=== PATIENT | female | born 1935 | race Asian ===

== ENCOUNTER 2017-04-15 02:53 | Emergency (ER) | payer OTHER ==
[~2017-04-15] VITALS: Ht 152.4 cm; Wt 40.8 kg
[~2017-04-15 02:53] MED LIST: ALDACTONE25 MG ORAL; ALDACTONE50 MG ORAL; ASPIR 8181 MG ORAL; ATORVASTATIN CA20 MG ORAL; LEVOTHYROXINE50 MCG ORAL; LISINOPRIL10 MG ORAL; LISINOPRIL20 MG ORAL; SPIRONOLACTONE100 MG ORAL; SPIRONOLACTONE25 MG ORAL
[2017-04-15] MEDS ORDERED: Morphine Sulfate 2mg/ml Inj IVP ONE (03:30)
[2017-04-15 03:54] LABS: BASOPHILS % (AUTO) 1.4 % (0.0-2.0); EOSINOPHILS % (AUTO) 1.5 % (0.0-3.0); LYMPHOCYTES % (AUTO) 33.5 % (20.0-45.0); MEAN CORPUSCULAR HEMOGLOBIN 31.9 PG (27.0-31.0); MEAN CORPUSCULAR VOLUME 100 FL (80-99); MEAN PLATELET VOLUME 6.4 FL (6.5-10.1); MONOCYTES % (AUTO) 5.2 % (1.0-10.0); NEUTROPHILS % (AUTO) 58.3 % (45.0-75.0); PLATELET COUNT 203 K/UL (150-450); RED BLOOD COUNT 3.79 M/UL (4.20-5.40); RED CELL DISTRIBUTION WIDTH 11.7 % (11.6-14.8); WHITE BLOOD COUNT 7.2 K/UL (4.8-10.8)
[2017-04-15 04:08] LABS: TROPONIN I < 0.30 ng/mL (<=0.30)
[2017-04-15 04:11] VITALS: BP 153/71
[2017-04-15 04:11] LABS: ALANINE AMINOTRANSFERASE 22 U/L (3-33); ALBUMIN/GLOBULIN RATIO 1.4 (1.0-2.7); ANION GAP 9 (5-15); ASPARTATE AMINO TRANSFERASE 26 U/L (5-40); CALCIUM 9.5 mg/dL (8.6-10.2); CARBON DIOXIDE 30 mEQ/L (20-30); CHLORIDE 98 mEQ/L (98-107); CREATININE 0.9 mg/dL (0.5-0.9); HEMOLYSIS 5; SODIUM 137 mEQ/L (135-145); TOTAL PROTEIN 6.7 g/dL (6.6-8.7)
[2017-04-15 04:14] LABS: INR 0.9 (0.9-1.1); PROTHROMBIN TIME 9.3 SEC (9.30-11.50)
[2017-04-15] MEDS ORDERED: levETIRAcetam 1,000mg/NS100ml 100 ML IVPB ONE (04:15)
[2017-04-15 04:21] LABS: CKMB < 1.5 ng/mL (< 3.8)
--- NOTE | 2017-04-15 04:48 | Emergency Room Report ---
History of Present Illness General Chief Complaint: Headache Source: Patient, EMS Present Illness HPI 81-year-old female presents ED complaining of headache. Per EMS patient woke up with headache and called 911. Started approximately one hour ago sudden onset. 10 out of 10. Sharp. Nonradiating. Upon arrival patient is holding the right side of her head, has nausea and vomiting. Denies chest pain or shortness of breath. No other aggravating or relieving factors. Denies any other associated symptom Allergies: Coded Allergies: No Known Allergies (Verified , 01/22/13) Patient History Past Medical History: CVA/TIA Pertinent Family History: none Social History: Denies: alcohol use, drug use, smoking Last Menstrual Period: NONE Now: No Immunizations: UTD Reviewed Nursing Documentation: PMH: Agreed, PSxH: Agreed Nursing Documentation-PMH Hx Cardiac Problems: Yes Hx Hypertension: Yes - STROKE Hx Cancer: No Hx Gastrointestinal Problems: No Hx Neurological Problems: Yes Hx Dizziness: Yes Review of Systems All Other Systems: negative except mentioned in HPI Physical Exam Vital Signs Date Time Temp Pulse Resp B/P Pulse Ox O2 Delivery O2 Flow Rate FiO2 04/15/17 02:53 98.4 70 18 163/78 98 Room Air Sp02 EP Interpretation: reviewed, normal General Appearance: alert, GCS 15, non-toxic, mild distress Head: normocephalic Eyes: right eye other - sluggish pupil ENT: normal ENT inspection Neck: normal inspection Respiratory: chest non-tender, lungs clear, normal breath sounds, speaking full sentences Cardiovascular #1: regular rate, rhythm, no edema Gastrointestinal: normal inspection Rectal: deferred Genitourinary: no CVA tenderness Musculoskeletal: normal inspection Neurologic: alert, oriented x3, responsive, motor strength/tone normal, sensory intact, speech normal Psychiatric: normal inspection Skin: normal inspection Lymphatic: normal inspection Procedures Critical Care Time Critical Care Time I feel this is a highly complex case requiring extensive working including EKG/ Rhythm strip, Xray/CT/US, Blood/urine lab work, repeat exams while in ED, and administration of strong opiates/narcotics for pain control, admission to hospital or close patient follow up. Total time: 30 min bedside evaluation and treatment excludes procedures (EKG). Reason for critical care: Intracranial bleed Possible complications: hypotension, hypertension, MS, shock, arrhythmias, metabolic acidosis, end organ damage, respiratory failure. Interventions: Labs, IV fluids, EKG, chest x-ray, CT head. Pain medications. Keppra. Neurosurgical consultation. Transferred to [facility] Course: Patient brought with acute onset of headache. CT head shows intracranial bleed with midline shift. Patient is awake and alert. protecting airway. Talking.. discussed with [facility] neurosurgery. Will defer intubation. Given IV Keppra. Given blood pressure below 160 systolic. Consultations: nursing staff, EMS, family Performed by: Dr Grady Tolerated well condition = critical j. because of unstable vital signs this patient had a condition that could potentially threaten life or limb. I feel this is a critical patient who required my full attention while patient was considered critical. Total Critical Care Time excluding procedures was greater than 35 minutes Medical Decision Making Diagnostic Impression: Primary Impression: Intracranial hemorrhage Additional Impression: PVCs (premature ventricular contractions) ER Course Hospital Course 81-year-old female presents with acute onset of headache Differential diagnosis includes- migraine, CVA/TIA, intracranial hemorrhage Clinical course Patient placed on stretcher. Initial history and physical I ordered labs, IV fluids, morphine, zofran, CT brain Labs- electrolytes ok, no leukocytosis, hb/hct stable, trop negative, coags ok EKG - junctional rhythm, PVCs, no ischemic changes inteprreted by me CXR no acute process CT Brain Hospital Course 81-year-old female presents with acute onset of headache Differential diagnosis includes- migraine, CVA/TIA, intracranial hemorrhage Clinical course Patient placed on stretcher. Initial history and physical I ordered labs, IV fluids, morphine, zofran, CT brain Labs- electrolytes ok, no leukocytosis, hb/hct stable, trop negative, coags ok EKG - junctional rhythm, PVCs, no ischemic changes inteprreted by me CXR no acute process CT Brain Large lobar hemorrhage involving right occipital and parietal lobes, measuring up to approximately 6.5 x 3.2 x 5.7 cm. Adjacent edema. Mass effect on right lateral ventricle and overlying sulci. 6 mm midline shift to the left. Minimal transtentorial herniation suspected Given loading dose of Keppra. Patient is protecting airway, mentating well and therefore should not be intubated. Patient will be transferred at [facility] for higher level of care. Case endorsed to neurosurgeon i. I feel this is a highly complex case requiring extensive working including EKG/Rhythm strip, Xray/CT/US, Blood/urine lab work, repeat exams while in ED, and administration of strong opiates/narcotics for pain control, admission to hospital or close patient follow up. Diagnosis - intraparenchymal bleed, PVCs transferred in critical condition Given loading dose of Keppra. Patient is protecting airway, mentating well and therefore should not be intubated. Patient will be transferred at [facility] for higher level of care. Case endorsed to neurosurgeon i. I feel this is a highly complex case requiring extensive working including EKG/Rhythm strip, Xray/CT/US, Blood/urine lab work, repeat exams while in ED, and administration of strong opiates/narcotics for pain control, admission to hospital or close patient follow up. Diagnosis - intraparenchymal bleed, PVCs transferred in critical condition Labs Test 04/15/17 03:30 White Blood Count 7.2 K/UL (4.8-10.8) Red Blood Count 3.79 M/UL (4.20-5.40) Hemoglobin 12.1 G/DL (12.0-16.0) Hematocrit 37.8 % (37.0-47.0) Mean Corpuscular Volume 100 FL (80-99) Mean Corpuscular Hemoglobin 31.9 PG (27.0-31.0) Mean Corpuscular Hemoglobin Concent 32.0 G/DL (32.0-36.0) Red Cell Distribution Width 11.7 % (11.6-14.8) Platelet Count 203 K/UL (150-450) Mean Platelet Volume 6.4 FL (6.5-10.1) Neutrophils (%) (Auto) 58.3 % (45.0-75.0) Lymphocytes (%) (Auto) 33.5 % (20.0-45.0) Monocytes (%) (Auto) 5.2 % (1.0-10.0) Eosinophils (%) (Auto) 1.5 % (0.0-3.0) Basophils (%) (Auto) 1.4 % (0.0-2.0) Prothrombin Time 9.3 SEC (9.30-11.50) Prothromb Time International Ratio 0.9 (0.9-1.1) Activated Partial Thromboplast Time 22 SEC (23-33) Sodium Level 137 mEQ/L (135-145) Potassium Level 4.0 mEQ/L (3.4-4.9) Chloride Level 98 mEQ/L (98-107) Carbon Dioxide Level 30 mEQ/L (20-30) Anion Gap 9 (5-15) Blood Urea Nitrogen 21 mg/dL (7-23) Creatinine 0.9 mg/dL (0.5-0.9) Estimat Glomerular Filtration Rate mL/min (>60) Glucose Level 184 mg/dL (74-106) Calcium Level 9.5 mg/dL (8.6-10.2) Total Bilirubin 0.3 mg/dL (0.0-1.2) Aspartate Amino Transf (AST/SGOT) 26 U/L (5-40) Alanine Aminotransferase (ALT/SGPT) 22 U/L (3-33) Alkaline Phosphatase 80 U/L (35-104) Total Creatine Kinase 66 U/L (26-140) Creatine Kinase MB < 1.5 ng/mL (< 3.8) Creatine Kinase MB Relative Index 2.2 Troponin I < 0.30 ng/mL (<=0.30) Total Protein 6.7 g/dL (6.6-8.7) Albumin 4.0 g/dL (3.5-5.2) Globulin 2.7 g/dL Albumin/Globulin Ratio 1.4 (1.0-2.7) EKG Diagnostic Results Rate: normal Rhythm: other - junctional ST Segments: other - PVCs ASA given to the pt in ED: No Rhythm Strip Diag. Results EP Interpretation: yes Rhythm: no ectopy Chest X-Ray Diagnostic Results Chest X-Ray Diagnostic Results : Chest X-Ray Ordered: Yes # of Views/Limited/Complete: 1 View Indication: Other - headache EP Interpretation: Yes Interpretation: no consolidation, no effusion, no pneumothorax, no acute cardiopulmonary disease Impression: No acute disease Interpreting ER Provider: electronically signed by Aleksandar Grady MD CT/MRI/US Diagnostic Results CT/MRI/US Diagnostic Results : Imaging Test Ordered: CT Head Impression Large lobar hemorrhage involving right occipital and parietal lobes, measuring up to approximately 6.5 x 3.2 x 5.7 cm. Adjacent edema. Mass effect on right lateral ventricle and overlying sulci. 6 mm midline shift to the left. Minimal transtentorial herniation suspected Last Vital Signs Date Time Temp Pulse Resp B/P Pulse Ox O2 Delivery O2 Flow Rate FiO2 04/15/17 04:11 98.4 66 13 153/71 98 Room Air Status: improved [facility] Condition: Critical Referrals: ISABEL RUDD (PCP) ALEKSANDAR GRADY M.D. Apr 15, 2017 04:48
[2017-04-15] MEDS ORDERED: Morphine Sulfate 4mg/ml Inj IVP ONE (05:00)
[2017-04-15 05:54] VITALS: BP 159/75
--- NOTE | 2017-04-15 12:22 | Diagnostic Imaging Report ---
Indication: Chest pain Technique: One view of the chest Comparison: 03/29/2014 Findings: No acute infiltrates, effusions, or congestion. Tortuous calcified aorta. Normal heart size. Upper mediastinum unremarkable. No significant interim change Impression: No acute process.
--- NOTE | 2017-04-15 13:31 | Diagnostic Imaging Report ---
Indications: Headache Technique: Spiral acquisitions obtained through the brain. Angled axial and coronal 5 x 5 mm slices were reconstructed. Total dose length product 1397 mGycm. CTDI vol(s) 70 mGy. Dose reduction achieved using automated exposure control Comparison: MRI 09/13/2013 Findings: There is a large right temporoparietal intraparenchymal hematoma which also extends slightly into the right. This is complex in shape, measures approximately 7 cm AP by 3.4 cm transverse by 6 cm craniocaudad. There is surrounding edema. This results in mass effect, predominantly manifested by anterior displacement and near complete effacement of the occipital horn, atrium, and temporal horn of the right lateral ventricle, less severe attenuation of the frontal horn and body of the right lateral ventricle.. There is also a slight degree of left right midline shift posteriorly, by about 4 mm. There is equivocal minimal transtentorial herniation medially. Basilar cisterns are otherwise preserved. No other foci of acute hemorrhage or edema. Prominence of the sellar region may indicate empty sella. Visualized orbits and sinuses are unremarkable. The calvarium is intact. There is mild age-related enlargement of ventricles and extra-axial CSF spaces otherwise. Impression: Positive for 7 x 6 x 3.4 cm right temporoparietooccipital acute intraparenchymal hematoma. Surrounding edema, mass effect as described above. Equivocal minimal transtentorial herniation Critical value findings transmitted to the emergency room at 0404 by [facility] teleradiology service on 04/15/[address] scanner at [facility] is accredited by the [employer] and the scans are performed using protocols designed to limit radiation exposure to as low as reasonably achievable to attain images of sufficient resolution adequate for diagnostic evaluation.
== END 2017-04-15 05:57 | disposition short-term general hospital (02) ==
LOC: EDBD 02:53 → EMR 03:10
DX: I62.9 Nontraumatic intracranial hemorrhage, unspecified (principal); I49.3 Ventricular premature depolarization; R11.2 Nausea with vomiting, unspecified; Z86.73 Personal history of transient ischemic attack (TIA), and cerebral infarction without residual deficits; I10 Essential (primary) hypertension
CPT/HCPCS: 36415; 70450; 71010; 80053; 82550; 82553; 84484; 85025; 85610; 85730; 86850; 86900; 86901; 93005; 96374; 96375; 99291; J2270; J2405; J7040

== ENCOUNTER 2018-08-16 16:00 | Inpatient (IN) | payer OTHER ==
[~2018-08-16] VITALS: Ht 162.6 cm; Wt 42.6 kg
[2018-08-16 16:48] VITALS: BP 150/67
--- NOTE | 2018-08-16 16:54 | Diagnostic Imaging Report ---
Indication: Reason For Exam: CP Technique: One view of the chest Comparison: none Findings: No acute infiltrates, effusions, or congestion. Tortuous calcified aorta. Borderline enlarged heart size. Upper mediastinum unremarkable. Lungs are somewhat hyperinflated. No significant interim change Impression: No acute process. Borderline cardiomegaly Possible COPD changes
[2018-08-16 16:59] LABS: APPEARANCE,URINE CLEAR; BILIRUBIN, URINE NEGATIVE (NEGATIVE); COLOR,URINE PALE YELLOW; GLUCOSE, URINE (UA) NEGATIVE (NEGATIVE); KETONES,URINE 2+ (NEGATIVE); LEUKOCYTE ESTERASE ,URINE 1+ (NEGATIVE); NITRITE,URINE NEGATIVE (NEGATIVE); PH,URINE 8 (4.5-8.0); PROTEIN,URINE NEGATIVE (NEGATIVE); UROBILINOGEN,URINE NORMAL MG/DL (0.0-1.0)
[2018-08-16 17:00] LABS: ANION GAP 10 mmol/L (5-15); BLOOD UREA NITROGEN 33 mg/dL (7-18); CALCIUM 8.3 MG/DL (8.5-10.1); CARBON DIOXIDE 24 MMOL/L (21-32); CHLORIDE 102 MMOL/L (98-107); CREATININE 1.5 MG/DL (0.55-1.30); POTASSIUM 5.1 MMOL/L (3.5-5.1); SODIUM 136 MMOL/L (136-145)
[2018-08-16 17:04] LABS: BASOPHILS % (AUTO) 1.7 % (0.0-2.0); EOSINOPHILS % (AUTO) 0.6 % (0.0-3.0); HEMATOCRIT 37.3 % (37.0-47.0); HEMOGLOBIN 12.9 G/DL (12.0-16.0); LYMPHOCYTES % (AUTO) 32.1 % (20.0-45.0); MEAN CORPUSCULAR VOLUME 95 FL (80-99); MONOCYTES % (AUTO) 7.6 % (1.0-10.0); NEUTROPHILS % (AUTO) 57.9 % (45.0-75.0); PLATELET COUNT 233 K/UL (150-450); RED BLOOD COUNT 3.93 M/UL (4.20-5.40); WHITE BLOOD COUNT 6.7 K/UL (4.8-10.8)
--- NOTE | 2018-08-16 17:13 | Emergency Room Report ---
History of Present Illness General Chief Complaint: Flu Like Symptoms Source: Patient, Family Member, EMS Present Illness HPI 83-year-old female, with a history of stroke no residual deficits few years ago , hypertension, presenting with shortness of breath. Patient states that she was with her , she felt a sudden onset of shortness of breath which lasted 30 minutes. Denies any fever chills coughing runny nose. No sick contacts or recent travel. Says that she did not really have chest pain during this time. It was not exertional. And it went away on its own. She has never experienced this in the past. slight dec in oral intake. no nausea vomiting or diarrhea. Has never had a cardiac workup per patient. No stress test or angiogram. No history of DVT or PE. No recent immobilization surgery or long travel Allergies: Coded Allergies: No Known Allergies (Verified , 01/22/13) Patient History Past Medical History: see triage record Past Surgical History: none Pertinent Family History: none Last Menstrual Period: NA Reviewed Nursing Documentation: PMH: Agreed; PSxH: Agreed Nursing Documentation-PMH Past Medical History: No History, Except For Hx Cardiac Problems: Yes - PALPS, CHF, 1ST DEGREE BLOCK, HIGH CHOLESTEROL Hx Hypertension: Yes Hx Cancer: No Hx Gastrointestinal Problems: No Hx Neurological Problems: Yes Hx Cerebrovascular Accident: Yes Hx Dizziness: Yes Review of Systems All Other Systems: negative except mentioned in HPI Physical Exam Vital Signs Date Time Temp Pulse Resp B/P (MAP) Pulse Ox O2 Delivery O2 Flow Rate FiO2 08/16/18 15:52 98.1 77 20 150/80 96 Room Air Sp02 EP Interpretation: reviewed, normal General Appearance: well appearing, alert, GCS 15, non-toxic, mild distress Head: normocephalic, atraumatic Eyes: bilateral eye normal inspection, bilateral eye PERRL, bilateral eye EOMI ENT: normal ENT inspection, normal pharynx, normal voice, moist mucus membranes Neck: normal inspection, full range of motion, supple Respiratory: normal inspection, lungs clear, normal breath sounds, no respiratory distress, no retraction, no wheezing, speaking full sentences, chest symmetrical Cardiovascular #1: normal inspection, regular rate, rhythm, no edema, normal capillary refill Cardiovascular #2: 2+ radial (R), 2+ radial (L) Gastrointestinal: normal inspection, non tender, soft, non-distended, no guarding Musculoskeletal: normal inspection, back normal, normal range of motion, non- tender Neurologic: normal inspection, alert, oriented x3, responsive, motor strength/ tone normal, sensory intact, normal gait, speech normal Psychiatric: normal inspection, judgement/insight normal, memory normal Skin: normal inspection, normal color, no rash, warm/dry, well hydrated, normal turgor Medical Decision Making Diagnostic Impression: Primary Impression: Dyspnea Additional Impression: Mild dehydration ER Course 83-year-old female presented with episode of shortness of breath DDX: ACS vs. CHF vs. pneumonia vs. gastritis/GERD vs. pneumothorax PE on differential however at this time there are other more likely diagnoses. Plan: IV access, obtain labs including troponin, EKG, CXR Anticipate admission ER course: Patient was treated with ASA. Patient has remained on a monitor given fluids no risk factors for PE but will add on d-dimer Disposition: Patient requires admission for rule out ACS/mild dehydration DW Dr Joshua Please note that this Emergency Department Report was dictated using Margin[employer] clinical dietitian technology software, occasionally this can lead to erroneous entry secondary to interpretation by the dictation equipment. EKG Diagnostic Results EP Interpretation: Yes Rate: normal Rhythm: NSR ST Segments: T-wave inversion in lead 3, T-wave flattening 1 and aVL ASA given to patient: Yes Rhythm Strip EP Interpretation: Yes Rate: 60 Rhythm: NSR, no PVCs, no ectopy Chest X-ray CXR: Ordered: Yes 1 view Indication: Chest pain EP interpretation: Yes Interpretation: Slight cardiomegaly, no pneumonia Impression: Slight cardiomegaly, no pneumonia Electronically signed by Imani Rosales MD Laboratory Tests Test 08/16/18 16:20 08/16/18 16:35 White Blood Count 6.7 K/UL (4.8-10.8) Red Blood Count 3.93 M/UL (4.20-5.40) L Hemoglobin 12.9 G/DL (12.0-16.0) Hematocrit 37.3 % (37.0-47.0) Mean Corpuscular Volume 95 FL (80-99) Mean Corpuscular Hemoglobin 32.8 PG (27.0-31.0) H Mean Corpuscular Hemoglobin Concent 34.6 G/DL (32.0-36.0) Red Cell Distribution Width 12.0 % (11.6-14.8) Platelet Count 233 K/UL (150-450) Mean Platelet Volume 6.1 FL (6.5-10.1) L Neutrophils (%) (Auto) 57.9 % (45.0-75.0) Lymphocytes (%) (Auto) 32.1 % (20.0-45.0) Monocytes (%) (Auto) 7.6 % (1.0-10.0) Eosinophils (%) (Auto) 0.6 % (0.0-3.0) Basophils (%) (Auto) 1.7 % (0.0-2.0) Sodium Level 136 MMOL/L (136-145) Potassium Level 5.1 MMOL/L (3.5-5.1) Chloride Level 102 MMOL/L (98-107) Carbon Dioxide Level 24 MMOL/L (21-32) Anion Gap 10 mmol/L (5-15) Blood Urea Nitrogen 33 mg/dL (7-18) H Creatinine 1.5 MG/DL (0.55-1.30) H Estimate Glomerular Filtration Rate mL/min (>60) Glucose Level 300 MG/DL (74-106) H Lactic Acid Level 2.50 mmol/L (0.4-2.0) H Calcium Level 8.3 MG/DL (8.5-10.1) L Total Bilirubin 0.2 MG/DL (0.2-1.0) Aspartate Amino Transferase (AST) 11 U/L (15-37) L Alanine Aminotransferase (ALT) 20 U/L (12-78) Alkaline Phosphatase 90 U/L (46-116) Total Creatine Kinase 51 U/L (26-308) Troponin I 0.009 ng/mL (0.000-0.056) Pro-B-Type Natriuretic Peptide 90 pg/mL (0-125) Total Protein 7.2 G/DL (6.4-8.2) Albumin 3.3 G/DL (3.4-5.0) L Globulin 3.9 g/dL Albumin/Globulin Ratio 0.8 (1.0-2.7) L Urine Color Pale yellow Urine Appearance Clear Urine pH 8 (4.5-8.0) Urine Specific [place] 1.010 (1.005-1.035) Urine Protein Negative (NEGATIVE) Urine Glucose (UA) Negative (NEGATIVE) Urine Ketones 2+ (NEGATIVE) H Urine Blood 3+ (NEGATIVE) H Urine Nitrite Negative (NEGATIVE) Urine Bilirubin Negative (NEGATIVE) Urine Urobilinogen Normal MG/DL (0.0-1.0) Urine Leukocyte Esterase 1+ (NEGATIVE) H Urine RBC 5-10 /HPF (0 - 2) H Urine WBC 2-4 /HPF (0 - 2) Urine Squamous Epithelial Cells Few /LPF (NONE/OCC) Urine Bacteria Few /HPF (NONE) Microbiology Date/Time Source Procedure Growth Status 08/16/18 16:20 Nasal Nares Influenza Types A,B Antigen (RENAN) - Final Complete Last Vital Signs Date Time Temp Pulse Resp B/P (MAP) Pulse Ox O2 Delivery O2 Flow Rate FiO2 08/16/18 16:48 71 20 Room Air 08/16/18 16:48 99.1 150/67 99 Disposition: ADMITTED INPATIENT Condition: Serious Imani Rosales M.D. Aug 16, 2018 17:13
[2018-08-16 17:21] LABS: ALANINE AMINOTRANSFERASE 20 U/L (12-78); ALBUMIN 3.3 G/DL (3.4-5.0); ALBUMIN/GLOBULIN RATIO 0.8 (1.0-2.7); ALKALINE PHOSPHATASE 90 U/L (46-116); ASPARTATE AMINO TRANSFERASE 11 U/L (15-37); BILIRUBIN,TOTAL 0.2 MG/DL (0.2-1.0); CREATINE KINASE 51 U/L (26-308)
[2018-08-16] MEDS ORDERED: METFORMIN HCL500 M1 ORAL (17:29)
[2018-08-16 18:06] VITALS: BP 155/81
[2018-08-16] MEDS ORDERED: LATANOPROST2.5 ML BOTH EYES (18:42)
[2018-08-16] MEDS ORDERED: LISINOPRIL20 MG ORAL (18:44)
[2018-08-16 23:00] VITALS: BP 137/81
[2018-08-17] VITALS: BP 145/81
[2018-08-17 04:00] VITALS: BP 134/76
[2018-08-17 08:00] VITALS: BP 130/65
[2018-08-17] MEDS ORDERED: Aspirin Baby 81mg ORAL SCH (10:00)
[2018-08-17] MEDS ORDERED: Bactrim-DS 1 tab ORAL SCH (10:00)
[2018-08-17] MEDS ORDERED: Bactrim SS Tab ORAL SCH ×2 (11:00→18:00)
[2018-08-17 12:00] VITALS: BP 135/75
[2018-08-17 16:00] VITALS: BP 158/87
--- NOTE | 2018-08-17 16:25 | History & Physical ---
History and Physical History & Physicial dict Benito Joshua MD Aug 17, 2018 16:25
[2018-08-17] MEDS: NovoLOG Insulin Flexpen SUBQ SCH ×2 (16:29→20:53)
--- NOTE | 2018-08-17 18:08 | Cardiology Progress Note ---
Assessment/Plan Assessment/Plan ekg unchanged trop neg no sig nor sx of chf on exam or labs keep on meds for bp and fu on echo unless new sx or finding would not pursuit further hopefully home soon [id number] Objective Last 24 Hour Vital Signs Date Time Temp Pulse Resp B/P (MAP) Pulse Ox O2 Delivery O2 Flow Rate FiO2 08/17/18 16:00 67 08/17/18 16:00 98.4 67 19 158/87 (110) 97 08/17/18 12:00 98.7 65 21 135/75 (95) 96 08/17/18 12:00 71 08/17/18 10:49 Room Air 08/17/18 08:00 99.0 78 21 130/65 (86) 95 08/17/18 08:00 75 08/17/18 04:00 70 08/17/18 04:00 97.5 80 20 134/76 (95) 94 08/17/18 00:00 97.7 72 21 145/81 (102) 93 08/17/18 00:00 78 08/16/18 23:53 Room Air 08/16/18 23:05 97.7 82 21 131/76 95 Room Air 08/16/18 23:00 97.7 82 21 137/81 (99) 95 Intake and Output 08/16/18 08/17/18 19:00 07:00 Intake Total 240 ml Output Total 500 ml Balance -260 ml Intake Oral 240 ml Output Urine Total 500 ml # Voids 1 4 Laboratory Tests Test 08/16/18 20:10 08/17/18 07:50 08/17/18 16:35 Lactic Acid Level 2.00 mmol/L (0.4-2.0) Troponin I 0.015 ng/mL (0.000-0.056) Hemoglobin A1c 6.3 % (4.3-6.0) H Microbiology Date/Time Source Procedure Growth Status 08/16/18 16:20 Nasal Nares Influenza Types A,B Antigen (RENAN) - Final Complete Fei Jarrett MD Aug 17, 2018 18:08
[2018-08-17 20:00] VITALS: BP 151/86
[2018-08-17] MEDS ORDERED: Latanoprost 0.005% Opth 2.5ml Soln BOTH EYES SCH (21:00)
--- NOTE | 2018-08-17 22:00 | History and Physical Report ---
DATE OF ADMISSION: 08/16/2018 HISTORY OF PRESENT ILLNESS: This is an 83-year-old female who is admitted because of an episode of shortness of breath of sudden onset that lasted about 30 minutes. She has a poor memory and cannot recall what happened. She had no chest pain and is feeling fine at this time. She states that she has no heart problems and never smoked or has any lung problems to her knowledge. PAST MEDICAL HISTORY: She states she had a stroke and brain surgery several years ago. She has mild hypertension, but not on treatment and elevated cholesterol. She had no other surgical history or medical problems. She denies diabetes. REVIEW OF SYSTEMS: Otherwise unremarkable. PHYSICAL EXAMINATION: GENERAL: The patient is alert and responds appropriately. VITAL SIGNS: Her vital signs are normal including her blood pressure and pulse. The saturation is 96% on room air. SKIN: Warm and dry. She is thin, but appears well nourished. HEENT: The head is normocephalic. NECK: No jugular vein distention. CHEST: Clear. CARDIAC: Rhythm is regular. ABDOMEN: Soft and nontender. Liver and spleen are not enlarged. EXTREMITIES: No clubbing, cyanosis, or edema. LABORATORY STUDIES: D-dimer was normal. Hemoglobin is 12.9. The white count and platelet count are normal. Chemistry panel shows mild azotemia and creatinine 1.5. Blood sugar was 300. Lactic acid was mildly elevated, but dropped to normal on repeat testing. Troponin is normal. Liver enzymes are normal. Urinalysis is negative. IMPRESSION: 1. Transient dyspnea, etiology unclear. 2. Chronic kidney disease, stage 3. 3. Elevated blood sugar suggesting diabetes. 4. Borderline hypertension by history. 5. History of stroke with poor memory. PLAN: The patient will be evaluated with echocardiogram and hemoglobin A1c. We will monitor her blood sugar and initiate hypoglycemic medication. Benito Joshua M.D. DR: NICO JOB#: [id number] CC:
--- NOTE | 2018-08-17 22:45 | Consultation ---
DATE OF CONSULTATION: 08/17/2018 CARDIOLOGY CONSULTATION CONSULTING PHYSICIAN: Fei Jarrett M.D. REFERRING PHYSICIAN: Benito Joshua M.D. REASON FOR REFERRAL: Chest pain and shortness of breath. HISTORY OF PRESENT ILLNESS: This is an 83-year-old female, who is somewhat of a poor historian. Information is obtained from the patient's chart. After my discussion with the patient as well as review of the records at [facility], the patient seemed to think that she came into the hospital because of dizziness and because of possibility of some shortness of breath, although that is not completely clear. The floor steward/stewardess run sheet indicates that she was complaining of flu-like symptoms. The patient denied any trauma, denied any chest pain, and denied any shortness of breath. The patient claimed weakness. Denied any dizziness, denied any blurred vision, and denied any ringing in her ears. The patient was otherwise not noted to have any significant abnormalities. She was brought to the emergency room at [facility] where she has subsequently been admitted to the emergency room. She indicated she was with her and she felt the sudden onset of shortness of breath lasted approximately 30 minutes. Denied any fevers or chills. No sick contacts and apparently she did not have chest pain during that time either and symptoms apparently went away on its own. She did indicate at this time that she does not have any chest pains at this time and she does not have any shortness of breath. She does not have any dizziness at the present time. PAST MEDICAL HISTORY: According to [facility] record is positive for history of diabetes mellitus, hypertension, hyperlipidemia, history of stroke in 2013, and history of right parieto-occipital intracerebral hemorrhage, status post craniotomy in April of 2017 with residual left homonymous hemianopsia, chronic intermittent vertigo since April of 2017, concerning for possible TIA and mild dementia with transient right hand tingling. She also has had some cataracts and history of falls, protein-calorie malnutrition, and bilateral carotid artery stenosis, cognitive dysfunction of mild degree, and history of headaches, hypothyroidism, and poorly controlled hypertension previously. She has had a history of a closed fracture of her radius as well as GI bleed secondary to gastritis as well as hemorrhoids. SOCIAL HISTORY: Never smoked or drank. She lives at home apparently. REVIEW OF SYSTEMS: CONSTITUTIONAL: She denies. GASTROINTESTINAL: She denies any nausea, vomiting, or diarrhea. She stated that she is having normal bowel movement. GENITOURINARY: She denies any burning on urination. PULMONARY: She denies. NEUROLOGIC: She denies. She is sitting up in bed. She is trying to remove her on top of her neck, is otherwise supple. LUNGS: Clear to auscultation and percussion. CARDIAC: S1 is normal. S2 is normal. Regular rate and rhythm. No heaves or thrills noted. ABDOMEN: Soft and nontender. Positive bowel sounds. EXTREMITIES: There is no clubbing, cyanosis, or edema. NEUROLOGICAL: She is awake, alert, and responsive. LABORATORY AND DIAGNOSTIC DATA: White count 6.7, hemoglobin 12.9, and platelet count 233,000. Her sodium 136, potassium 5.1, chloride 102, bicarbonate 24, BUN 32, creatinine 1.5, glucose 300, and calcium is 8.3. AST and ALT within normal limits. Albumin 3.3. Her coags, D-dimer is 0.4, and her lactic acid level of 2.5, subsequently 2.0 and A1c of 6.3. Troponin is 0.009 and 0.015 and her urinalysis shows 5 to 10 rbc's and 2 to 4 wbc's. Chest x-ray was performed in the emergency room, shows no acute processes, borderline cardiomegaly, possible COPD changes, and rapid influenza swab was negative. Her proBNP was only 90. ASSESSMENT AND PLAN: 1. Reported history of shortness of breath. 2. Hypertension history. 3. Hyperlipidemia history. 4. History of cognitive dysfunction. 5. History of intracranial bleeding. Dr. Joshua, this patient was seen in cardiac consultation. The patient to me denies any chest pains on review of all the records from different physicians and paramedics also indicate that she denied any chest pain . Her electrocardiogram shows T-wave inversions in aVL and V4 through V4 through V6 remains unchanged since prior EKGs from May 2018 at [facility]. Her last echocardiogram at [facility] have been performed in January of 2018, showed ejection fraction of 62%. She had pseudonormal left ventricular filling pattern consistent with diastolic relaxation abnormalities and increased left atrial pressure at that time. Since there are no electrocardiographic abnormalities that are new and since there are no signs or symptoms of congestive heart failure on her laboratory exams and the fact that she has recurrent element of dementia as well as she has pulse form indicating selective treatments for this patient. I do not favor any further testing and from a cardiac point of view and would treat expectantly as needed. She should be continued on her medications for hyperlipidemia as well as hypertension and she has been taking previously. I will follow the patient along with you as long as necessary and unless any new changes, I would probably not recommend further testing. Fei Jarrett M.D. DR: RENETTA JOB#: [id number] CC:
[2018-08-17] MEDS ORDERED: Milk of Magnesia 30ml Ud ORAL PRN (23:15)
[2018-08-18] VITALS: BP_SYST 116; BP_SYST 146; BP_DIAS 73; BP_DIAS 89
[2018-08-18 04:00] VITALS: BP 154/94
[2018-08-18] MEDS: NovoLOG Insulin Flexpen SUBQ SCH ×3 (06:12→16:37)
[2018-08-18] MEDS ORDERED: sitaGLIPtin 25mg tab ORAL SCH (06:30)
[2018-08-18 08:00] VITALS: BP 151/84
[2018-08-18] MEDS ORDERED: Lisinopril 20mg tab ORAL SCH (09:00)
[2018-08-18] MEDS ORDERED: Aspirin Baby 81mg ORAL SCH (09:00)
[2018-08-18] MEDS ORDERED: Bactrim SS Tab ORAL SCH (09:00)
[2018-08-18 10:15] LABS: ALANINE AMINOTRANSFERASE 20 U/L (12-78); ALBUMIN 3.4 G/DL (3.4-5.0); ALBUMIN/GLOBULIN RATIO 0.9 (1.0-2.7); ALKALINE PHOSPHATASE 67 U/L (46-116); ANION GAP 4 mmol/L (5-15); ASPARTATE AMINO TRANSFERASE 18 U/L (15-37); BILIRUBIN,TOTAL 0.5 MG/DL (0.2-1.0); BLOOD UREA NITROGEN 17 mg/dL (7-18); CALCIUM 8.6 MG/DL (8.5-10.1); CARBON DIOXIDE 31 MMOL/L (21-32); CHLORIDE 102 MMOL/L (98-107); CHOLESTEROL 228 MG/DL (< 200); CREATININE 0.9 MG/DL (0.55-1.30); HDL CHOLESTEROL 93 MG/DL (40-60); POTASSIUM 3.7 MMOL/L (3.5-5.1); SODIUM 137 MMOL/L (136-145); TRIGLYCERIDES 59 MG/DL (30-150)
[2018-08-18 12:00] VITALS: BP 147/99
--- NOTE | 2018-08-18 14:07 | Cardiology Report ---
APPROVED REPORT EXAM: Two-dimensional and M-mode echocardiogram with Doppler and color Doppler. INDICATION Dizziness M-Mode DIMENSIONS IVSd1.2 (0.7-1.1cm)Left Atrium (MM)3.4 (1.6-4.0cm) LVDd4.4 (3.5-5.6cm)Aortic Root2.5 (2.0-3.7cm) PWd0.8 (0.7-1.1cm)Aortic Cusp Exc.1.4 (1.5-2.0cm) LVDs3.1 (2.5-4.0cm) PWs1.1 cm Normal left ventricular chamber size, systolic function and wall motion. Left ventricular ejection fraction estimated to be 55 %. Mild left ventricular hypertrophy. No evidence of pericardial effusion. Left atrial chamber size is at upper normal limits. Right chamber sizes are within normal limits. Aortic valve calcification with decreased cusp excursion c/w mild aortic stenosis. Mildly thickened mitral valve leaflets with normal excursion. Mild mitral annulus and aortic root calcification. Normal pulmonic valve structure. Normal tricuspid valve structure. IVC is normal in size with physiological collapse. A color flow and spectral Doppler study was performed and revealed: No aortic insufficiency. Peak aortic valve gradient of 16 mmHg and a mean of 10 mmHg. Aortic valve area 1.3 cm2 calculated by continuity equation. Mild to moderate mitral regurgitation. Mitral inflow indicates normal left ventricular diastolic function. Mild tricuspid regurgitation. Tricuspid systolic velocities suggests peak right ventricular systolic pressure of 36 mmHg, consistent with mild pulmonary hypertension. Mild pulmonic regurgitation present.
[2018-08-18] MEDS ORDERED: JANUVIA25 MG ORAL (14:47)
[2018-08-18 16:00] VITALS: BP 131/66
--- NOTE | 2018-08-18 16:32 | Cardiology Report ---
APPROVED REPORT EKG Measurement Heart [id number] Sinus rhythm with 1st degree AV block T wave abnormality, consider lateral ischemia Abnormal ECG
--- NOTE | 2018-08-18 16:39 | Cardiology Report ---
APPROVED REPORT EKG Measurement Heart [id number] Sinus rhythm with 1st degree AV block Nonspecific T wave abnormality Abnormal ECG
[2018-08-19] MEDS ORDERED: sitaGLIPtin 25mg tab ORAL SCH (06:30)
--- NOTE | 2018-08-21 14:06 | Discharge Summary ---
Discharge Summary Discharge Summary _ DATE OF ADMISSION: 08/16/2018 DATE OF DISCHARGE: 08/18/2018 REASON FOR ADMISSION: 83 years old female with past medical history of CVA, brain surgery, mild hypertension, elevated cholesterol, presented to emergency department due to shortness of breath which happened suddenly and lasted about 30 minutes. Patient was unable to recall what happened. She denied chest pain. Laboratory workup revealed negative troponin. Hemoglobin 12.9. No leukocytosis. Chemistry showed mild azotemia with BUN 33 and creatinine 1.5. Blood sugar elevated 300 . Lactic acid was initially mildly elevated, but dropped to normal on repeat testing. Liver enzymes stable. Urinalysis with no evidence of UTI. D-dimer within normal range. Initial EKG showed sinus rhythm with first-degree AV block and nonspecific T- wave abnormality. Chest x-ray showed no acute process. It revealed borderline cardiomegaly and possible COPD changes. Patient admitted with diagnoses of transient dyspnea , etiology unclear, chronic kidney disease stage III, elevated blood sugar suggesting diabetes, borderline hypertension by history, history of stroke with poor memory. CONSULTANTS: wheat cleaner Dr. Jarrett [facility] COURSE: Patient admitted to telemetry floor. Cardiology consult was requested. Echocardiogram revealed ejection fraction of 55%. No evidence of wall motion abnormality. Mild left ventricular hypertrophy. Mild aortic stenosis. [id number] mitral regurgitation. Right ventricular systolic pressure of 36 consistent with mild pulmonary hypertension. Serial troponin 2 were negative. Pro BNP 90. Repeated EKG showed sinus rhythm with first-degree AV block and T-wave abnormality, unchanged from initial. Lipid panel revealed elevated total cholesterol of 228 and elevated LDL 136. TSH was within normal limits. Patient was started on anti-glycemic regimen with Januvia and metformin. HgA1c- 6.3 Antiplatelet therapy with aspirin was continued. Blood pressure was managed with FLOR inhibitor. Statin was continued. Per wheat cleaner repeated EKG was not changed, patient had no signs or symptoms of congestive heart failure on examination or labs. Steam Powerplant Supervisor cleared patient for discharge. Pulse oximetry was stable on room air. Renal parameters electrolytes were closely monitored. After 1 L o0f IV fluids, BUN from 33 down to 17, and creatinine from 1.5 down to 0.9. Acute kidney injury resolved , possibly due to dehydration. Patient was ready for discharge home FINAL DIAGNOSES: Transient dyspnea , etiology unclear Hypertension Hyperlipidemia Acute kidney injury - resolved Diabetes mellitus History of stroke with poor memory DISCHARGE MEDICATIONS: See Medication Reconciliation list. DISCHARGE INSTRUCTIONS: Patient was discharged home . Follow up with primary care provider in one week I have been assigned to dictate discharge summary for this account. I was not involved in the patient's management. Amy Mosquera NP Aug 21, 2018 14:06
== END 2018-08-18 17:38 | disposition home or self-care (01) | DRG 204 ==
LOC: EDBD 16:00 → EMR 17:29 → 2E 17:37 → EDBEDREQ 18:31 → 2E 08-17 01:51
DX: R06.00 Dyspnea, unspecified (principal); N17.9 Acute kidney failure, unspecified; N18.3 Chronic kidney disease, stage 3 (moderate); I69.311 Memory deficit following cerebral infarction; I12.9 Hypertensive chronic kidney disease with stage 1 through stage 4 chronic kidney disease, or unspecified chronic kidney disease; E11.22 Type 2 diabetes mellitus with diabetic chronic kidney disease; E86.0 Dehydration; Z91.81 History of falling
CPT/HCPCS: 36415; 71045; 80053; 80061; 81003; 82550; 82962; 83036; 83605; 83880; 84443; 84484; 85025; 85379; 86710; 87040; 93005; 93306; 96360; 99285; J1815

== ENCOUNTER 2019-05-13 13:57 | Emergency (ER) | payer OTHER ==
[~2019-05-13] VITALS: Ht 152.4 cm; Wt 40.8 kg
[~2019-05-13 13:57] MED LIST changes: +JANUVIA25 MG ORAL; +LATANOPROST2.5 ML BOTH EYES; +METFORMIN HCL500 M1 ORAL
--- NOTE | 2019-05-13 14:03 | NUR ---
ED Nurse Note: PT BROUGHT IN BY RA29 FROM HOME. AOX4. PT C/O DIZZINESS X THIS MORNING. PT DENIES NAUSEA OR VOMITING. PT DENIES ANY PAIN. VSS.
[2019-05-13 14:04] VITALS: BP 137/104
--- NOTE | 2019-05-13 14:06 | Emergency Room Report ---
History of Present Illness General Chief Complaint: Dizziness Source: Patient, Medical Record Present Illness HPI Patient is an 83-year-old female who presented after increased dizziness. Patient had acute onset of symptoms. She had vague description of increased dizziness. She denies any pain. Patient denies any current complaints. She states she feels somewhat better.Patient had onset of symptoms this morning. Possibly around 9 AM. Patient was brought in by EMS after acute onset of symptoms.Patient brought to the emergency department approximately 6 hours after symptom onset. Allergies: Coded Allergies: No Known Allergies (Verified , 01/22/13) Patient History Past Medical History: see triage record Reviewed Nursing Documentation: PMH: Agreed; PSxH: Agreed Nursing Documentation-PMH Past Medical History: No History, Except For Hx Cardiac Problems: Yes - ACS Hx Hypertension: Yes Hx Diabetes: Yes Hx Cancer: No Hx Gastrointestinal Problems: No Hx Neurological Problems: Yes Hx Cerebrovascular Accident: Yes - 04/2018 Hx Dizziness: Yes Physical Exam Vital Signs Date Time Temp Pulse Resp B/P (MAP) Pulse Ox O2 Delivery O2 Flow Rate FiO2 05/13/19 13:56 98.1 98 20 141/108 (119) 99 Room Air Sp02 EP Interpretation: reviewed, normal General Appearance: normal inspection, well appearing, no apparent distress, alert, GCS 15 Head: atraumatic ENT: normal ENT inspection, hearing grossly normal, normal voice Neck: normal inspection, full range of motion, supple, no bony tend Respiratory: normal inspection, lungs clear, normal breath sounds, no respiratory distress, no retraction, no wheezing Cardiovascular #1: regular rate, rhythm, no edema Gastrointestinal: normal inspection, normal bowel sounds, non tender, soft, no guarding, no hernia Genitourinary: no CVA tenderness Musculoskeletal: normal inspection, back normal, normal range of motion Neurologic: normal inspection, alert, oriented x3, responsive, binding cementer french cord III-XII nml as tested, speech normal, Babinski - upgoing toe to left, other - left side finger to nose passpointing Psychiatric: normal inspection, judgement/insight normal, mood/affect normal Procedures Critical Care Time Critical Care Time Patient had a critical medical condition which untreated could potentially result in life or limb threatening injury. Total critical care time excluding procedures approximately 45 minutes. Medical Decision Making Diagnostic Impression: Primary Impression: CVA (cerebral vascular accident) Additional Impression: Hyponatremia ER Course Patient presented for dizziness. Differential diagnosis include was not limited to acute CVA, myocardial infarction, dehydration, hypertensive crisis among others. Because of complexity of patient's case laboratory testing and imaging studies were ordered. EKG interpreted by me showed normal sinus rhythm with a rate of 91 with a prolonged QT interval. Patient was noted to be somewhat hyponatremic.Patient was given aspirin. Patient stroke appears to be minimum of 6 hours old. He was given aspirin as well as started on IV fluids.Patient was discussed with for transfer higher level of care. Labs Test 05/13/19 14:16 White Blood Count 6.8 K/UL (4.8-10.8) Red Blood Count 4.28 M/UL (4.20-5.40) Hemoglobin 13.9 G/DL (12.0-16.0) Hematocrit 41.8 % (37.0-47.0) Mean Corpuscular Volume 98 FL (80-99) Mean Corpuscular Hemoglobin 32.5 PG (27.0-31.0) Mean Corpuscular Hemoglobin Concent 33.3 G/DL (32.0-36.0) Red Cell Distribution Width 12.2 % (11.6-14.8) Platelet Count 220 K/UL (150-450) Mean Platelet Volume 6.8 FL (6.5-10.1) Neutrophils (%) (Auto) 69.8 % (45.0-75.0) Lymphocytes (%) (Auto) 18.5 % (20.0-45.0) Monocytes (%) (Auto) 9.4 % (1.0-10.0) Eosinophils (%) (Auto) 0.6 % (0.0-3.0) Basophils (%) (Auto) 1.6 % (0.0-2.0) D-Dimer 1.15 mg/L FEU (0.00-0.49) Sodium Level 130 MMOL/L (136-145) Potassium Level 4.1 MMOL/L (3.5-5.1) Chloride Level 97 MMOL/L (98-107) Carbon Dioxide Level 28 MMOL/L (21-32) Anion Gap 5 mmol/L (5-15) Blood Urea Nitrogen 21 mg/dL (7-18) Creatinine 1.0 MG/DL (0.55-1.30) Estimat Glomerular Filtration Rate mL/min (>60) Glucose Level 145 MG/DL (74-106) Calcium Level 8.8 MG/DL (8.5-10.1) Total Bilirubin 0.9 MG/DL (0.2-1.0) Aspartate Amino Transf (AST/SGOT) 40 U/L (15-37) Alanine Aminotransferase (ALT/SGPT) 47 U/L (12-78) Alkaline Phosphatase 73 U/L (46-116) Troponin I 0.168 ng/mL (0.000-0.056) Total Protein 7.1 G/DL (6.4-8.2) Albumin 3.6 G/DL (3.4-5.0) Globulin 3.5 g/dL Albumin/Globulin Ratio 1.0 (1.0-2.7) Lipase 164 U/L (73-393) Thyroid Stimulating Hormone (TSH) 5.885 uiU/mL (0.358-3.740) EKG Diagnostic Results Rate: normal Rhythm: NSR ST Segments: no acute changes Last Vital Signs Date Time Temp Pulse Resp B/P (MAP) Pulse Ox O2 Delivery O2 Flow Rate FiO2 05/13/19 13:56 98.1 98 20 141/108 (119) 99 Room Air Status: unchanged Disposition: XFER SHT-TRM HOSP Condition: Serious Jad Ledesma MD May 13, 2019 14:06
--- NOTE | 2019-05-13 14:19 | NUR ---
ED Nurse Note: PT TO CT VIA ROZ.
[2019-05-13 14:26] LABS: BASOPHILS % (AUTO) 1.6 % (0.0-2.0); EOSINOPHILS % (AUTO) 0.6 % (0.0-3.0); HEMATOCRIT 41.8 % (37.0-47.0); HEMOGLOBIN 13.9 G/DL (12.0-16.0); LYMPHOCYTES % (AUTO) 18.5 % (20.0-45.0); MEAN CORPUSCULAR VOLUME 98 FL (80-99); MONOCYTES % (AUTO) 9.4 % (1.0-10.0); NEUTROPHILS % (AUTO) 69.8 % (45.0-75.0); PLATELET COUNT 220 K/UL (150-450); RED BLOOD COUNT 4.28 M/UL (4.20-5.40); RED CELL DISTRIBUTION WIDTH 12.2 % (11.6-14.8); WHITE BLOOD COUNT 6.8 K/UL (4.8-10.8)
[2019-05-13 14:37] LABS: ANION GAP 5 mmol/L (5-15); BLOOD UREA NITROGEN 21 mg/dL (7-18); CALCIUM 8.8 MG/DL (8.5-10.1); CARBON DIOXIDE 28 MMOL/L (21-32); CHLORIDE 97 MMOL/L (98-107); POTASSIUM 4.1 MMOL/L (3.5-5.1); SODIUM 130 MMOL/L (136-145)
--- NOTE | 2019-05-13 14:41 | NUR ---
ED Nurse Note: PT REMINDED URINE SPECIMEN IS NEEDED. PT STATES SHE DOES NOT HAVE TO URINATE AT THIS TIME AND REFUSES STRAIGHT CATHETER. DR SOTELO AWARE.
[2019-05-13 14:49] LABS: ALANINE AMINOTRANSFERASE 47 U/L (12-78); ALBUMIN 3.6 G/DL (3.4-5.0); ALKALINE PHOSPHATASE 73 U/L (46-116); ASPARTATE AMINO TRANSFERASE 40 U/L (15-37); BILIRUBIN,TOTAL 0.9 MG/DL (0.2-1.0)
--- NOTE | 2019-05-13 14:55 | Diagnostic Imaging Report ---
Indication: 83-year-old female presenting with increasing dizziness. Acute onset. Technique: Contiguous 5 mm thick transaxial imaging of the head obtained in a Siemens Sensation [address] scanner. Soft tissue and bone windows generated. Automatic Exposure Control was utilized. Total Dose length Product (DLP): 1407.[address] Dose Index Volume (CTDIvol): 70.38 mGy Comparison: 04/15/2017 Findings: There is a new area of low attenuation in the right occipital lobe suspicious for acute CVA. Encephalomalacia in the right posterior parietal region associated with previous insult from either intraparenchymal bleed demonstrated. There is associated slight dilatation of the occipital horn of the right lateral ventricle in association with the encephalomalacia. Generalized atrophy of the brain is mild to moderate in degree. There is periventricular low attenuation consistent with chronic small vessel disease. Intracranial carotid artery calcifications are present. The bones are unremarkable. IMPRESSION: Suspected acute CVA in the right occipital lobe. Encephalomalacia right posterior parietal region. 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 Critical value communication. Findings were discussed via telephone with Dr. Jad Ledesma in the emergency department by Dr. Jeffers from [facility] radiology 14:52, 05/13/2019. The CT scanner at [facility] is accredited by the [employer] and the scans are performed using dose optimization techniques as appropriate to a performed exam including Automatic Exposure control.
[2019-05-13] MEDS ORDERED: Aspirin Baby 81mg ORAL ONE (15:00)
[2019-05-13 15:20] VITALS: BP 142/102
--- NOTE | 2019-05-13 15:20 | NUR ---
ED Nurse Note: RA61 AT BEDSIDE FOR PT TRANSPORT TO [facility]. REPORT GIVEN TO EMS AND STAR FARMER AT [facility]. PT TAKEN TO 8S30, PER STAR FARMER WITH ALL BELONGINGS ACCOMPANIED BY EMS.
== END 2019-05-13 15:20 | disposition short-term general hospital (02) ==
LOC: EDBD 13:57 → EMR 14:17
DX: I63.9 Cerebral infarction, unspecified (principal); E87.1 Hypo-osmolality and hyponatremia; I10 Essential (primary) hypertension; E11.9 Type 2 diabetes mellitus without complications
CPT/HCPCS: 36415; 70450; 80053; 83690; 84443; 84484; 85025; 85379; 86850; 86900; 86901; 93005; 99291